=== PATIENT | female | born 1950 | race Two or more races ===

== ENCOUNTER 2019-09-09 07:59 | Inpatient (IN) | payer MEDICARE, OTHER ==
[2019-09-09] VITALS (54 sets, daily range): BP systolic 50–120; BP diastolic 2–91
[~2019-09-09] VITALS: Ht 172.7 cm; Wt 108.0 kg
[2019-09-09] MEDS ORDERED: AZITHROMYCIN 500MG/ 250ML 250 ML IV ONE (08:15)
[2019-09-09] MEDS ORDERED: cefTRIAXone 1GM/50ML D5W 50 ML IV ONE (08:15)
[2019-09-09] MEDS ORDERED: FUROSEMIDE 40 MG/4 ML VIAL IV ONE (08:30)
[2019-09-09 09:07] LABS: Basophils # (auto) 0.1 10 ^3/uL (0-0.2); Eosinophils # (auto) 0 10 ^3/uL (0-0.8); Eosinophils % (auto) 0.4 % (0.0-7.0); Hemoglobin 12.2 g/dL (12.2-16.2); Monocytes # (auto) 0.9 10 ^3/uL (0-1.3); Nucleated Red Blood Cells % 0.1 %
[2019-09-09 09:09] LABS: Basophils % (auto) 0.8 % (0.0-2.0); Hematocrit 37.5 % (36.0-46.0); Lymphocytes # (auto) 2.4 10 ^3/uL (0.4-5.4); Lymphocytes % (auto) 21.9 % (10.0-50.0); Mean Corpuscular Hemoglobin 27.1 pg (28.0-32.0); Mean Corpuscular Hgb Conc. 32.6 g/dL (32.0-36.0); Mean Corpuscular Volume 83.1 fL (80.0-100.0); Monocytes % (auto) 7.9 % (0.0-12.0); Neutrophils # (auto) 7.4 10 ^3/uL (1.6-8.6); Platelet Count (auto) 618 10^3/uL (140-450); Red Blood Cells 4.51 10^6/uL (4.0-5.20); Red Cell Distribution Width 15.3 % (11.8-14.3); White Blood Cell 10.7 10^3/uL (4.4-10.8)
[2019-09-09 09:20] LABS: Calcium 8.4 mg/dL (8.5-10.1); Potassium 3.9 mmol/L (3.5-5.1)
[2019-09-09] MEDS ORDERED: FUROSEMIDE 20 MG/2 ML VIAL ONE (09:22)
[2019-09-09 09:23] LABS: Lactic Acid w/Reflex 3.5 mmol/L (0.4-2.0)
[2019-09-09 09:25] LABS: INR 1.06 (0.9-1.15); Partial Thromboplastin Time 26.1 sec (23.64-32.05)
[2019-09-09 09:26] LABS: BUN/Creatinine Ratio 36.7; Bilirubin, Total 0.4 mg/dL (0.2-1.0)
[2019-09-09 09:29] LABS: Urine Bacteria NONE SEEN /hpf (None Seen); Urine Blood Negative /uL (Negative); Urine Specific Gravity 1.014 (1.001-1.035); Urine WBC 1 /hpf (0 - 5)
[2019-09-09] MEDS ORDERED: IOHEXOL 350 MG/ML 100ML IJ ONE ×2 (09:42→11:03)
[2019-09-09] MEDS ORDERED: ENOXAPARIN SOD 100 MG/1 ML SYRINGE SC ONE (11:00)
[2019-09-09] MEDS ORDERED: MORPHINE SULF INJ 2 MG/ML SYRINGE 1ML IV PRN ×2 (11:15)
[2019-09-09] MEDS ORDERED: LACTULOSE 20Gm/30ML SOLN PO PRN ×2 (11:15)
[2019-09-09] MEDS ORDERED: DEXTROSE (50%) 50ML SYRG IV PRN (11:15)
[2019-09-09] MEDS ORDERED: TEMAZEPAM 15 MG CAP PO PRN (11:15)
[2019-09-09] MEDS ORDERED: ALBUTEROL SULF 2.5 MG/0.5ML(0.5%) NEB SOLN NEB PRN (11:15)
[2019-09-09] MEDS ORDERED: NITROGLYCERIN 0.4 MG SL TAB SL PRN (11:15)
[2019-09-09] MEDS ORDERED: traMADol HCL 50 MG TAB PO PRN (11:15)
[2019-09-09] MEDS ORDERED: PROMETHAZINE HCL 25 MG/ML 1ML IV PRN (11:15)
[2019-09-09] MEDS ORDERED: CLINDAMYCIN 600MG IV 50 ML IV ONE (11:15)
[2019-09-09] MEDS: ACCU-CHEK COMFORT CURVE STRIP VI SCH ×3 (11:30→22:10)
[2019-09-09] MEDS: InsuLIN REG 1unit/0.01ml Soln (100units/ml) SC SCH ×3 (11:30→22:12)
[2019-09-09] MEDS ORDERED: SUCCINYLCHOLINE CHLORIDE 20 MG/ML 10ML VIAL IV ONE ×2 (11:39→15:15)
[2019-09-09] MEDS ORDERED: MIDAZOLAM DRIP 50 mg/50mL 50 ML IV ONE ×2 (11:39→13:26)
[2019-09-09] MEDS ORDERED: ETOMIDATE (2MG/ML) 20ML VIAL IV ONE ×2 (11:39→15:15)
[2019-09-09] MEDS: MIDAZOLAM DRIP 50 mg/50mL 50 ML IV SCH ×2 (11:54→20:38)
[2019-09-09 12:02] LABS: Alcohol, Urine < 3.0 mg/dL (0-5); Amphetamine Screen, Urine POSITIVE (NEGATIVE); Barbiturate Scree,Urine NEGATIVE (NEGATIVE); Benzodiazephine Screen, Urine NEGATIVE (NEGATIVE); Cannabinoid Screen, Urine NEGATIVE (NEGATIVE); Cocaine Screen, Urine NEGATIVE (NEGATIVE); Opiate Scree,Urine NEGATIVE (NEGATIVE); Phencyclidine Screen, Urine NEGATIVE (NEGATIVE)
[2019-09-09] MEDS ORDERED: NOREPINEPHRINE 8 MG/250ML KIT 250 ML IV ONE (12:26)
[2019-09-09] MEDS: NOREPINEPHRINE 8 MG/250ML KIT 250 ML IV SCH ×2 (12:30→21:52)
[2019-09-09] MEDS: fentaNYL Drip 2500mCg/250mlNS 250 ML IV SCH ×2 (12:30→23:41)
[2019-09-09] MEDS: PHENYLEPHRINE IV 250 ML IV SCH ×2 (13:20→20:39)
[2019-09-09] MEDS: SODIUM CHLOR 0.9% PF (SALINE LOCK) 10ML VIAL/SYR IV SCH ×2 (14:00→21:41)
[2019-09-09] MEDS: CARVEDILOL 3.125 MG TAB PO SCH (21:40)
[2019-09-09] MEDS: CLINDAMYCIN 600MG IV 50 ML IV SCH (21:43)
[2019-09-09] MEDS: ENOXAPARIN SOD 80 MG/0.8ML SYRINGE SC SCH (21:58)
[2019-09-09] MEDS: ALBUTEROL SULF 2.5 MG/0.5ML(0.5%) NEB SOLN NEB SCH ×2 (22:00→22:29)
[2019-09-09] MEDS ORDERED: VENL150T26 PO (23:14)
[2019-09-09] MEDS ORDERED: BENA20TA14 PO (23:14)
[2019-09-09] MEDS ORDERED: METF-370 PO (23:14)
[2019-09-09] MEDS ORDERED: SIMV-8 PO (23:14)
[2019-09-09] MEDS ORDERED: THYR30TA PO (23:14)
[2019-09-10] VITALS (101 sets, daily range): BP systolic 67–240; BP diastolic 33–170
[2019-09-10] MEDS: MIDAZOLAM DRIP 50 mg/50mL 50 ML IV SCH ×3 (00:14→20:34)
[2019-09-10] MEDS ORDERED: MULTCHW3 OR (01:31)
[2019-09-10] MEDS ORDERED: GABA100C9 PO (01:31)
[2019-09-10] MEDS ORDERED: FURO1TAB33 PO (01:31)
[2019-09-10] MEDS ORDERED: ASPI-404 PO (01:31)
[2019-09-10] MEDS: ACETAMINOPHEN 500 MG TAB PO PRN ×3 (01:50→17:00)
[2019-09-10] MEDS: NOREPINEPHRINE 8 MG/250ML KIT 250 ML IV SCH ×2 (02:41→06:47)
[2019-09-10] MEDS ORDERED: SODIUM CHLORIDE 0.9% 1,000 ML IV ONE (03:30)
[2019-09-10] MEDS: PHENYLEPHRINE IV 250 ML IV SCH ×3 (04:18→15:23)
[2019-09-10] MEDS: SODIUM CHLOR 0.9% PF (SALINE LOCK) 10ML VIAL/SYR IV SCH ×3 (05:38→21:59)
[2019-09-10] MEDS: CLINDAMYCIN 600MG IV 50 ML IV SCH ×3 (05:38→21:57)
[2019-09-10] MEDS: ACCU-CHEK COMFORT CURVE STRIP VI SCH ×4 (06:02→22:00)
[2019-09-10] MEDS: InsuLIN REG 1unit/0.01ml Soln (100units/ml) SC SCH ×4 (06:02→22:15)
[2019-09-10] MEDS: ALBUTEROL SULF 2.5 MG/0.5ML(0.5%) NEB SOLN NEB SCH ×3 (06:30→22:32)
[2019-09-10 06:42] LABS: Basophils # (auto) 0.1 10 ^3/uL (0-0.2); Eosinophils % (auto) 0.4 % (0.0-7.0); Lymphocytes # (auto) 3.6 10 ^3/uL (0.4-5.4); Monocytes # (auto) 1.5 10 ^3/uL (0-1.3); Neutrophils # (auto) 8.2 10 ^3/uL (1.6-8.6); Nucleated Red Blood Cells % 0.1 %
[2019-09-10 06:44] LABS: Basophils % (auto) 0.4 % (0.0-2.0); Eosinophils # (auto) 0 10 ^3/uL (0-0.8); Hematocrit 36.3 % (36.0-46.0); Hemoglobin 11.6 g/dL (12.2-16.2); Lymphocytes % (auto) 26.8 % (10.0-50.0); Mean Corpuscular Hemoglobin 26.9 pg (28.0-32.0); Monocytes % (auto) 11.2 % (0.0-12.0); Neutrophils % (auto) 61.2 % (37.0-80.0); Platelet Count (auto) 610 10^3/uL (140-450); Red Blood Cells 4.32 10^6/uL (4.0-5.20); White Blood Cell 13.3 10^3/uL (4.4-10.8)
[2019-09-10 06:57] LABS: Albumin 2.7 g/dL (3.4-5.0); Potassium 3.7 mmol/L (3.5-5.1)
[2019-09-10 07:02] LABS: BUN/Creatinine Ratio 36.4; Bilirubin, Total 0.7 mg/dL (0.2-1.0); Total Protein 6.3 g/dL (6.4-8.2)
[2019-09-10] MEDS ORDERED: SODIUM BICARBONATE 8.4 % INJ 50ML VIAL IV ONE ×2 (08:30→11:30)
[2019-09-10] MEDS: CARVEDILOL 3.125 MG TAB PO SCH ×2 (10:00→22:00)
[2019-09-10] MEDS ORDERED: levoFLOXacin 500MG 100 ML IV SCH (10:00)
[2019-09-10] MEDS ORDERED: PANTOPRAZOLE 40 MG TAB PO SCH (10:00)
[2019-09-10] MEDS ORDERED: POTASSIUM CHL 20 Meq TABLET PO SCH (10:00)
[2019-09-10] MEDS: ASPirin 81 mg TAB PO SCH (10:15)
[2019-09-10] MEDS: ENOXAPARIN SOD 80 MG/0.8ML SYRINGE SC SCH (10:15)
[2019-09-10] MEDS: fentaNYL Drip 2500mCg/250mlNS 250 ML IV SCH ×2 (11:59→23:28)
[2019-09-10] MEDS: PANTOPRAZOLE 40 MG/10 ML VIAL INJ IV SCH (12:10)
[2019-09-10] MEDS ORDERED: levoFLOXacin 250MG 50 ML IV ONE (13:45)
[2019-09-10] MEDS: FUROSEMIDE 100 MG/10ML VIAL IV SCH (14:06)
[2019-09-10] MEDS: POTASSIUM EFFERVESENT TAB 25 MEQ GT SCH (15:22)
[2019-09-10] MEDS: PHENYLEPHRINE INJ 40 MG in SODIUM CHL 0.9% 250 ML IV SCH ×2 (17:00→20:34)
[2019-09-10] MEDS: HYDROCORTISONE SOD SUCC 100 MG/2ML INJ VIAL IV SCH ×2 (18:35→23:38)
[2019-09-10] MEDS: NOREPINEPHRINE BITARTRATE 16 MG in SODIUM CHL 0.9% 250 ML IV SCH (18:41)
[2019-09-10] MEDS: ENOXAPARIN SOD 100 MG/1 ML SYRINGE SC SCH (22:00)
[2019-09-11] VITALS (106 sets, daily range): BP systolic 60–289; BP diastolic 37–272
[2019-09-11] MEDS ORDERED: PHENYLEPHRINE HCL 10 MG/ML VL ONE (01:19)
[2019-09-11] MEDS: NOREPINEPHRINE BITARTRATE 16 MG in SODIUM CHL 0.9% 250 ML IV SCH ×2 (01:36→20:39)
[2019-09-11] MEDS: PHENYLEPHRINE INJ 40 MG in SODIUM CHL 0.9% 250 ML IV SCH (01:37)
[2019-09-11 04:36] LABS: Basophils # (auto) 0.1 10 ^3/uL (0-0.2); Basophils % (auto) 0.5 % (0.0-2.0); Eosinophils # (auto) 0 10 ^3/uL (0-0.8); Eosinophils % (auto) 0.1 % (0.0-7.0); Hematocrit 36.8 % (36.0-46.0); Hemoglobin 11.9 g/dL (12.2-16.2); Lymphocytes # (auto) 1.5 10 ^3/uL (0.4-5.4); Lymphocytes % (auto) 11.2 % (10.0-50.0); Mean Corpuscular Hemoglobin 27.2 pg (28.0-32.0); Mean Corpuscular Hgb Conc. 32.2 g/dL (32.0-36.0); Mean Corpuscular Volume 84.6 fL (80.0-100.0); Monocytes # (auto) 0.8 10 ^3/uL (0-1.3); Monocytes % (auto) 6.2 % (0.0-12.0); Neutrophils # (auto) 10.7 10 ^3/uL (1.6-8.6); Platelet Count (auto) 575 10^3/uL (140-450); Red Blood Cells 4.36 10^6/uL (4.0-5.20); Red Cell Distribution Width 15.5 % (11.8-14.3)
[2019-09-11] MEDS: MIDAZOLAM DRIP 50 mg/50mL 50 ML IV SCH ×5 (04:40→22:45)
[2019-09-11 05:01] LABS: Albumin 2.5 g/dL (3.4-5.0); BUN/Creatinine Ratio 24.5; Bilirubin, Total 0.8 mg/dL (0.2-1.0); Calcium 8.2 mg/dL (8.5-10.1); Total Protein 6.5 g/dL (6.4-8.2)
[2019-09-11] MEDS: HYDROCORTISONE SOD SUCC 100 MG/2ML INJ VIAL IV SCH ×4 (05:50→23:47)
[2019-09-11] MEDS: SODIUM CHLOR 0.9% PF (SALINE LOCK) 10ML VIAL/SYR IV SCH ×3 (05:51→21:52)
[2019-09-11] MEDS: CLINDAMYCIN 600MG IV 50 ML IV SCH ×3 (05:51→21:51)
[2019-09-11] MEDS: ALBUTEROL SULF 2.5 MG/0.5ML(0.5%) NEB SOLN NEB SCH ×3 (07:10→22:23)
[2019-09-11] MEDS: InsuLIN REG 1unit/0.01ml Soln (100units/ml) SC SCH ×4 (07:17→22:05)
[2019-09-11] MEDS: ACCU-CHEK COMFORT CURVE STRIP VI SCH ×4 (07:17→22:02)
[2019-09-11] MEDS: POTASSIUM EFFERVESENT TAB 25 MEQ GT SCH (10:00)
[2019-09-11] MEDS ORDERED: PANTOPRAZOLE 40 MG/10 ML VIAL INJ IV SCH (10:00)
[2019-09-11] MEDS: ASPirin 81 mg TAB PO SCH (10:00)
[2019-09-11] MEDS: CARVEDILOL 3.125 MG TAB PO SCH ×2 (10:00→21:52)
[2019-09-11] MEDS: levoFLOXacin 750MG 150 ML IV SCH (10:01)
[2019-09-11] MEDS: ENOXAPARIN SOD 100 MG/1 ML SYRINGE SC SCH ×2 (10:01→22:02)
[2019-09-11] MEDS: PANTOPRAZOLE 40 MG/10 ML VIAL INJ IV SCH (10:02)
[2019-09-11] MEDS: FUROSEMIDE 100 MG/10ML VIAL IV SCH (10:02)
[2019-09-11] MEDS: fentaNYL Drip 2500mCg/250mlNS 250 ML IV SCH ×2 (11:10→22:57)
[2019-09-11] MEDS ORDERED: CYCL1TAB18 PO (15:45)
[2019-09-11] MEDS ORDERED: ESTR1TAB3 PO (15:45)
[2019-09-11] MEDS ORDERED: POTA10TA51 PO (15:45)
[2019-09-11] MEDS: VASOPRESSIN 50 UNITS in D5W 5% 247.5 ML IV SCH (18:48)
[2019-09-12] VITALS (101 sets, daily range): BP systolic 105–178; BP diastolic 51–150
[2019-09-12] MEDS: PHENYLEPHRINE INJ 40 MG in SODIUM CHL 0.9% 250 ML IV SCH ×2 (01:35→19:00)
[2019-09-12] MEDS: MIDAZOLAM DRIP 50 mg/50mL 50 ML IV SCH ×6 (02:44→22:12)
[2019-09-12] MEDS: CLINDAMYCIN 600MG IV 50 ML IV SCH ×3 (05:40→21:00)
[2019-09-12] MEDS: HYDROCORTISONE SOD SUCC 100 MG/2ML INJ VIAL IV SCH ×4 (05:40→23:35)
[2019-09-12] MEDS: SODIUM CHLOR 0.9% PF (SALINE LOCK) 10ML VIAL/SYR IV SCH ×3 (05:41→21:01)
[2019-09-12] MEDS: ALBUTEROL SULF 2.5 MG/0.5ML(0.5%) NEB SOLN NEB SCH ×3 (06:07→21:33)
[2019-09-12] MEDS: ACCU-CHEK COMFORT CURVE STRIP VI SCH ×4 (06:16→23:31)
[2019-09-12] MEDS: InsuLIN REG 1unit/0.01ml Soln (100units/ml) SC SCH ×4 (06:18→23:33)
[2019-09-12] MEDS: NOREPINEPHRINE BITARTRATE 16 MG in SODIUM CHL 0.9% 250 ML IV SCH (06:35)
[2019-09-12] MEDS ORDERED: DEXTROSE (50%) 50ML SYRG IV PRN (08:00)
[2019-09-12 08:24] LABS: Basophils # (auto) 0.1 10 ^3/uL (0-0.2); Eosinophils # (auto) 0 10 ^3/uL (0-0.8); Lymphocytes # (auto) 1.8 10 ^3/uL (0.4-5.4); Lymphocytes % (auto) 14.9 % (10.0-50.0); Monocytes # (auto) 0.9 10 ^3/uL (0-1.3); Red Cell Distribution Width 15.9 % (11.8-14.3)
[2019-09-12 08:26] LABS: Basophils % (auto) 0.6 % (0.0-2.0); Eosinophils % (auto) 0.1 % (0.0-7.0); Hematocrit 38.4 % (36.0-46.0); Hemoglobin 12.2 g/dL (12.2-16.2); Mean Corpuscular Hemoglobin 27.1 pg (28.0-32.0); Mean Corpuscular Hgb Conc. 31.7 g/dL (32.0-36.0); Mean Corpuscular Volume 85.4 fL (80.0-100.0); Monocytes % (auto) 7.7 % (0.0-12.0); Neutrophils # (auto) 9.3 10 ^3/uL (1.6-8.6); Neutrophils % (auto) 76.7 % (37.0-80.0); Platelet Count (auto) 699 10^3/uL (140-450); White Blood Cell 12.1 10^3/uL (4.4-10.8)
[2019-09-12 09:39] LABS: Albumin 2.4 g/dL (3.4-5.0); Calcium 8.7 mg/dL (8.5-10.1)
[2019-09-12 09:43] LABS: Bilirubin, Total 0.5 mg/dL (0.2-1.0); Total Protein 6.7 g/dL (6.4-8.2)
[2019-09-12] MEDS: CARVEDILOL 3.125 MG TAB PO SCH ×2 (10:00→21:02)
[2019-09-12] MEDS: POTASSIUM EFFERVESENT TAB 25 MEQ GT SCH (10:09)
[2019-09-12] MEDS: FUROSEMIDE 100 MG/10ML VIAL IV SCH (10:09)
[2019-09-12] MEDS: ENOXAPARIN SOD 100 MG/1 ML SYRINGE SC SCH ×2 (10:09→21:00)
[2019-09-12] MEDS: levoFLOXacin 750MG 150 ML IV SCH (10:09)
[2019-09-12] MEDS: ASPirin 81 mg TAB PO SCH (10:09)
[2019-09-12] MEDS: PANTOPRAZOLE 40 MG/10 ML VIAL INJ IV SCH (10:09)
[2019-09-12] MEDS: fentaNYL Drip 2500mCg/250mlNS 250 ML IV SCH ×2 (11:56→20:45)
[2019-09-12] MEDS: VASOPRESSIN 50 UNITS in D5W 5% 247.5 ML IV SCH (16:45)
[2019-09-13] VITALS (86 sets, daily range): BP systolic 85–145; BP diastolic 34–73
[2019-09-13] MEDS: MIDAZOLAM DRIP 50 mg/50mL 50 ML IV SCH ×5 (01:28→18:08)
[2019-09-13 03:56] LABS: Basophils % (auto) 0.4 % (0.0-2.0); Eosinophils # (auto) 0 10 ^3/uL (0-0.8); Monocytes # (auto) 0.9 10 ^3/uL (0-1.3)
[2019-09-13 03:57] LABS: Basophils # (auto) 0.1 10 ^3/uL (0-0.2); Hematocrit 36.3 % (36.0-46.0); Lymphocytes # (auto) 1.8 10 ^3/uL (0.4-5.4); Lymphocytes % (auto) 14.9 % (10.0-50.0); Mean Corpuscular Hemoglobin 27.7 pg (28.0-32.0); Mean Corpuscular Hgb Conc. 32.9 g/dL (32.0-36.0); Mean Corpuscular Volume 84.1 fL (80.0-100.0); Neutrophils # (auto) 9.1 10 ^3/uL (1.6-8.6); Neutrophils % (auto) 76.7 % (37.0-80.0); Platelet Count (auto) 706 10^3/uL (140-450); Red Blood Cells 4.32 10^6/uL (4.0-5.20); Red Cell Distribution Width 15.9 % (11.8-14.3); White Blood Cell 11.8 10^3/uL (4.4-10.8)
[2019-09-13 04:10] LABS: Albumin 2.5 g/dL (3.4-5.0); Calcium 8.5 mg/dL (8.5-10.1); Potassium 3.7 mmol/L (3.5-5.1)
[2019-09-13 04:13] LABS: BUN/Creatinine Ratio 65.4; Bilirubin, Total 0.4 mg/dL (0.2-1.0); Total Protein 6.4 g/dL (6.4-8.2)
[2019-09-13] MEDS: ACCU-CHEK COMFORT CURVE STRIP VI SCH ×3 (05:31→17:37)
[2019-09-13] MEDS: InsuLIN REG 1unit/0.01ml Soln (100units/ml) SC SCH ×3 (05:32→17:53)
[2019-09-13] MEDS: CLINDAMYCIN 600MG IV 50 ML IV SCH ×3 (05:41→22:27)
[2019-09-13] MEDS: HYDROCORTISONE SOD SUCC 100 MG/2ML INJ VIAL IV SCH ×3 (05:41→17:41)
[2019-09-13] MEDS: SODIUM CHLOR 0.9% PF (SALINE LOCK) 10ML VIAL/SYR IV SCH ×3 (05:41→22:27)
[2019-09-13] MEDS: ALBUTEROL SULF 2.5 MG/0.5ML(0.5%) NEB SOLN NEB SCH ×3 (05:52→22:09)
[2019-09-13] MEDS: CARVEDILOL 3.125 MG TAB PO SCH ×2 (09:26→22:00)
[2019-09-13] MEDS: ENOXAPARIN SOD 100 MG/1 ML SYRINGE SC SCH ×2 (09:26→22:27)
[2019-09-13] MEDS: POTASSIUM EFFERVESENT TAB 25 MEQ GT SCH (09:26)
[2019-09-13] MEDS: FUROSEMIDE 100 MG/10ML VIAL IV SCH (09:26)
[2019-09-13] MEDS: levoFLOXacin 750MG 150 ML IV SCH (09:26)
[2019-09-13] MEDS: ASPirin 81 mg TAB PO SCH (09:26)
[2019-09-13] MEDS: PANTOPRAZOLE 40 MG/10 ML VIAL INJ IV SCH (09:27)
[2019-09-13] MEDS: PHENYLEPHRINE INJ 40 MG in SODIUM CHL 0.9% 250 ML IV SCH (09:27)
[2019-09-13] MEDS: fentaNYL Drip 2500mCg/250mlNS 250 ML IV SCH (09:54)
[2019-09-13] MEDS: VASOPRESSIN 50 UNITS in D5W 5% 247.5 ML IV SCH (15:55)
[2019-09-13] MEDS: NOREPINEPHRINE BITARTRATE 16 MG in SODIUM CHL 0.9% 250 ML IV SCH (16:37)
[2019-09-14] VITALS (60 sets, daily range): BP systolic 100–159; BP diastolic 36–71
[2019-09-14] MEDS: PHENYLEPHRINE INJ 40 MG in SODIUM CHL 0.9% 250 ML IV SCH (03:57)
[2019-09-14] MEDS: HYDROCORTISONE SOD SUCC 100 MG/2ML INJ VIAL IV SCH ×5 (05:41→23:46)
[2019-09-14] MEDS: CLINDAMYCIN 600MG IV 50 ML IV SCH (05:41)
[2019-09-14] MEDS: SODIUM CHLOR 0.9% PF (SALINE LOCK) 10ML VIAL/SYR IV SCH ×3 (05:41→22:00)
[2019-09-14] MEDS: InsuLIN REG 1unit/0.01ml Soln (100units/ml) SC SCH ×5 (05:42→23:47)
[2019-09-14] MEDS: ACCU-CHEK COMFORT CURVE STRIP VI SCH ×5 (05:42→23:46)
[2019-09-14] MEDS: ALBUTEROL SULF 2.5 MG/0.5ML(0.5%) NEB SOLN NEB SCH ×3 (06:04→22:11)
[2019-09-14 06:24] LABS: Eosinophils # (auto) 0 10 ^3/uL (0-0.8); Hemoglobin 11.3 g/dL (12.2-16.2); Nucleated Red Blood Cells % 0.1 %; White Blood Cell 12.9 10^3/uL (4.4-10.8)
[2019-09-14 06:26] LABS: Basophils # (auto) 0.1 10 ^3/uL (0-0.2); Basophils % (auto) 0.4 % (0.0-2.0); Eosinophils % (auto) 0.2 % (0.0-7.0); Hematocrit 35.4 % (36.0-46.0); Lymphocytes # (auto) 4.5 10 ^3/uL (0.4-5.4); Mean Corpuscular Hemoglobin 26.9 pg (28.0-32.0); Mean Corpuscular Hgb Conc. 31.9 g/dL (32.0-36.0); Mean Corpuscular Volume 84.1 fL (80.0-100.0); Monocytes % (auto) 8.1 % (0.0-12.0); Neutrophils # (auto) 7.3 10 ^3/uL (1.6-8.6); Neutrophils % (auto) 56.3 % (37.0-80.0); Platelet Count (auto) 697 10^3/uL (140-450); Red Blood Cells 4.21 10^6/uL (4.0-5.20); Red Cell Distribution Width 15.5 % (11.8-14.3)
[2019-09-14 06:31] LABS: Potassium 3.2 mmol/L (3.5-5.1)
[2019-09-14 06:44] LABS: Albumin 2.5 g/dL (3.4-5.0); BUN/Creatinine Ratio 72.5; Bilirubin, Total 0.4 mg/dL (0.2-1.0); Calcium 8.6 mg/dL (8.5-10.1)
[2019-09-14] MEDS ORDERED: POTASSIUM CHL 20MEQ/100ML 100 ML IV ONE ×3 (07:30→08:45)
[2019-09-14] MEDS ORDERED: DIGOXIN (250MCG/ML) 2 ML AMPULE IV ONE ×2 (08:00→08:30)
[2019-09-14] MEDS: fentaNYL Drip 2500mCg/250mlNS 250 ML IV SCH ×2 (08:29→10:04)
[2019-09-14] MEDS: PANTOPRAZOLE 40 MG/10 ML VIAL INJ IV SCH (09:42)
[2019-09-14] MEDS: levoFLOXacin 750MG 150 ML IV SCH (09:43)
[2019-09-14] MEDS: ENOXAPARIN SOD 100 MG/1 ML SYRINGE SC SCH ×2 (09:43→22:00)
[2019-09-14] MEDS: POTASSIUM EFFERVESENT TAB 25 MEQ GT SCH (09:43)
[2019-09-14] MEDS: FUROSEMIDE 100 MG/10ML VIAL IV SCH (09:43)
[2019-09-14] MEDS: ASPirin 81 mg TAB PO SCH (09:43)
[2019-09-14] MEDS: CARVEDILOL 3.125 MG TAB PO SCH ×2 (09:43→22:00)
[2019-09-14] MEDS: MIDAZOLAM DRIP 50 mg/50mL 50 ML IV SCH (10:03)
[2019-09-14] MEDS ORDERED: NOREPINEPHRINE BITARTRATE 16 MG in D5W 5% 250 ML IV SCH (13:45)
[2019-09-14] MEDS: ceFAZolin 2 GM in D5W 5% 100 ML IV SCH ×2 (14:37→22:00)
[2019-09-14] MEDS: NOREPINEPHRINE BITARTRATE 16 MG in SODIUM CHL 0.9% 250 ML IV SCH ×2 (15:15→19:10)
[2019-09-14] MEDS: VASOPRESSIN 50 UNITS in D5W 5% 247.5 ML IV SCH (16:45)
[2019-09-14 23:34] LABS: BUN/Creatinine Ratio 62.5; Calcium 8.7 mg/dL (8.5-10.1)
[2019-09-15] VITALS (74 sets, daily range): BP systolic 86–132; BP diastolic 23–64
[2019-09-15] MEDS: SODIUM CHLOR 0.9% PF (SALINE LOCK) 10ML VIAL/SYR IV SCH ×3 (06:00→22:00)
[2019-09-15] MEDS: ceFAZolin 2 GM in D5W 5% 100 ML IV SCH ×3 (06:00→22:00)
[2019-09-15] MEDS: InsuLIN REG 1unit/0.01ml Soln (100units/ml) SC SCH ×3 (06:00→18:04)
[2019-09-15] MEDS: ACCU-CHEK COMFORT CURVE STRIP VI SCH ×3 (06:00→17:52)
[2019-09-15] MEDS: HYDROCORTISONE SOD SUCC 100 MG/2ML INJ VIAL IV SCH ×4 (06:00→22:00)
[2019-09-15] MEDS: ALBUTEROL SULF 2.5 MG/0.5ML(0.5%) NEB SOLN NEB SCH ×3 (07:07→21:52)
[2019-09-15 07:19] LABS: Eosinophils # (auto) 0 10 ^3/uL (0-0.8); Nucleated Red Blood Cells % 0.1 %
[2019-09-15 07:20] LABS: Basophils # (auto) 0 10 ^3/uL (0-0.2); Basophils % (auto) 0.3 % (0.0-2.0); Eosinophils % (auto) 0.1 % (0.0-7.0); Hematocrit 35.2 % (36.0-46.0); Hemoglobin 11.5 g/dL (12.2-16.2); Lymphocytes # (auto) 3.5 10 ^3/uL (0.4-5.4); Lymphocytes % (auto) 26.6 % (10.0-50.0); Mean Corpuscular Hemoglobin 27.5 pg (28.0-32.0); Mean Corpuscular Hgb Conc. 32.7 g/dL (32.0-36.0); Mean Corpuscular Volume 84.1 fL (80.0-100.0); Monocytes # (auto) 1.1 10 ^3/uL (0-1.3); Monocytes % (auto) 8.4 % (0.0-12.0); Neutrophils # (auto) 8.5 10 ^3/uL (1.6-8.6); Neutrophils % (auto) 64.6 % (37.0-80.0); Platelet Count (auto) 653 10^3/uL (140-450); Red Blood Cells 4.19 10^6/uL (4.0-5.20); Red Cell Distribution Width 15.8 % (11.8-14.3); White Blood Cell 13.2 10^3/uL (4.4-10.8)
[2019-09-15 07:38] LABS: Albumin 2.3 g/dL (3.4-5.0); Calcium 8.3 mg/dL (8.5-10.1); Potassium 3.8 mmol/L (3.5-5.1)
[2019-09-15 07:41] LABS: BUN/Creatinine Ratio 58.6; Bilirubin, Total 0.4 mg/dL (0.2-1.0)
[2019-09-15] MEDS ORDERED: LIDOCAINE 2%HCL (LOCAL ANESTH.) INJ 20ML MDV ONE (08:20)
[2019-09-15] MEDS ORDERED: IOHEXOL 350 MG/ML 100ML IJ ONE (08:20)
[2019-09-15] MEDS ORDERED: ANGIOMAX 250 MG VIAL IV ONE (08:34)
[2019-09-15] MEDS ORDERED: EPINEPHrine HCL 1 MG/10 ML SYRG ONE (08:34)
[2019-09-15] MEDS ORDERED: SODIUM CHL 0.9% 0 ML ONE (08:34)
[2019-09-15] MEDS: FUROSEMIDE 100 MG/10ML VIAL IV SCH ×2 (10:00→14:53)
[2019-09-15] MEDS: CARVEDILOL 3.125 MG TAB PO SCH ×2 (10:00→22:00)
[2019-09-15] MEDS: ENOXAPARIN SOD 100 MG/1 ML SYRINGE SC SCH ×2 (10:00→22:00)
[2019-09-15] MEDS: POTASSIUM EFFERVESENT TAB 25 MEQ GT SCH (10:00)
[2019-09-15] MEDS: ASPirin 81 mg TAB PO SCH (10:00)
[2019-09-15] MEDS: PANTOPRAZOLE 40 MG/10 ML VIAL INJ IV SCH (10:45)
[2019-09-15] MEDS: levoFLOXacin 750MG 150 ML IV SCH (10:45)
[2019-09-15] MEDS: MIDAZOLAM DRIP 50 mg/50mL 50 ML IV SCH (10:49)
[2019-09-15] MEDS: fentaNYL Drip 2500mCg/250mlNS 250 ML IV SCH (10:54)
[2019-09-15] MEDS ORDERED: DOBUTamine 1000MCG/ML 250 ML IV ONE (10:59)
[2019-09-15] MEDS: DOBUTamine 1000MCG/ML 250 ML IV SCH ×2 (11:22→18:05)
[2019-09-15] MEDS: NOREPINEPHRINE BITARTRATE 16 MG in D5W 5% 250 ML IV SCH (13:15)
[2019-09-15] MEDS: VASOPRESSIN 50 UNITS in D5W 5% 247.5 ML IV SCH (16:45)
[2019-09-16] VITALS (92 sets, daily range): BP systolic 110–172; BP diastolic 37–66
[2019-09-16] MEDS: DOBUTamine 1000MCG/ML 250 ML IV SCH ×3 (01:46→17:29)
[2019-09-16 04:07] LABS: Basophils # (auto) 0 10 ^3/uL (0-0.2); Basophils % (auto) 0.2 % (0.0-2.0); Eosinophils # (auto) 0 10 ^3/uL (0-0.8); Eosinophils % (auto) 0.1 % (0.0-7.0); Monocytes # (auto) 0.7 10 ^3/uL (0-1.3); Nucleated Red Blood Cells % 0.1 %; White Blood Cell 9.5 10^3/uL (4.4-10.8)
[2019-09-16 04:10] LABS: Hematocrit 32.7 % (36.0-46.0); Hemoglobin 10.8 g/dL (12.2-16.2); Lymphocytes % (auto) 21.1 % (10.0-50.0); Mean Corpuscular Hemoglobin 27.6 pg (28.0-32.0); Mean Corpuscular Hgb Conc. 33.1 g/dL (32.0-36.0); Mean Corpuscular Volume 83.4 fL (80.0-100.0); Monocytes % (auto) 7.8 % (0.0-12.0); Neutrophils # (auto) 6.7 10 ^3/uL (1.6-8.6); Neutrophils % (auto) 70.8 % (37.0-80.0); Platelet Count (auto) 531 10^3/uL (140-450); Red Blood Cells 3.93 10^6/uL (4.0-5.20)
[2019-09-16 04:24] LABS: Potassium 3.3 mmol/L (3.5-5.1)
[2019-09-16 04:31] LABS: Albumin 2.4 g/dL (3.4-5.0); Bilirubin, Total 0.4 mg/dL (0.2-1.0); Calcium 8.2 mg/dL (8.5-10.1); Total Protein 5.8 g/dL (6.4-8.2)
[2019-09-16] MEDS: ceFAZolin 2 GM in D5W 5% 100 ML IV SCH ×3 (06:00→21:44)
[2019-09-16] MEDS: SODIUM CHLOR 0.9% PF (SALINE LOCK) 10ML VIAL/SYR IV SCH ×3 (06:05→21:45)
[2019-09-16] MEDS: HYDROCORTISONE SOD SUCC 100 MG/2ML INJ VIAL IV SCH ×3 (06:05→21:45)
[2019-09-16] MEDS: InsuLIN REG 1unit/0.01ml Soln (100units/ml) SC SCH ×5 (06:29→23:22)
[2019-09-16] MEDS: ACCU-CHEK COMFORT CURVE STRIP VI SCH ×5 (06:29→23:20)
[2019-09-16] MEDS: ALBUTEROL SULF 2.5 MG/0.5ML(0.5%) NEB SOLN NEB SCH ×3 (06:45→22:29)
[2019-09-16] MEDS: ASPirin 81 mg TAB PO SCH (10:00)
[2019-09-16] MEDS: POTASSIUM EFFERVESENT TAB 25 MEQ GT SCH (10:00)
[2019-09-16] MEDS: CARVEDILOL 3.125 MG TAB PO SCH ×2 (10:00→21:46)
[2019-09-16] MEDS ORDERED: AMIODARONE 450mg/250ml AE 250 ML IV SCH (10:12)
[2019-09-16] MEDS: DIGOXIN (250MCG/ML) 2 ML AMPULE IV SCH (10:21)
[2019-09-16] MEDS: METOCLOPRAMIDE HCL 5MG/ml INJ 2ml VIAL IV SCH ×3 (10:21→21:44)
[2019-09-16] MEDS: PANTOPRAZOLE 40 MG/10 ML VIAL INJ IV SCH (10:21)
[2019-09-16] MEDS: FUROSEMIDE 100 MG/10ML VIAL IV SCH (10:21)
[2019-09-16] MEDS: levoFLOXacin 750MG 150 ML IV SCH (10:22)
[2019-09-16] MEDS: POTASSIUM CHL 20MEQ/100ML 100 ML IV SCH ×3 (10:22→12:47)
[2019-09-16] MEDS: ENOXAPARIN SOD 100 MG/1 ML SYRINGE SC SCH ×2 (10:23→21:46)
[2019-09-16] MEDS: DexMEDEtomidine 400 MCG in D5W 5% 96 ML IV SCH (10:32)
[2019-09-16] MEDS: fentaNYL Drip 2500mCg/250mlNS 250 ML IV SCH (12:21)
[2019-09-16] MEDS: NOREPINEPHRINE BITARTRATE 16 MG in D5W 5% 250 ML IV SCH (13:15)
[2019-09-16] MEDS: MIDAZOLAM DRIP 50 mg/50mL 50 ML IV SCH (15:06)
[2019-09-16] MEDS: VASOPRESSIN 50 UNITS in D5W 5% 247.5 ML IV SCH (16:45)
[2019-09-16] MEDS: AMIODARONE 450mg/250ml AE 250 ML IV SCH (17:29)
[2019-09-17] VITALS (42 sets, daily range): BP systolic 110–155; BP diastolic 34–59
[2019-09-17 04:13] LABS: Basophils # (auto) 0 10 ^3/uL (0-0.2); Eosinophils # (auto) 0 10 ^3/uL (0-0.8); Lymphocytes # (auto) 1.5 10 ^3/uL (0.4-5.4); Red Blood Cells 4.05 10^6/uL (4.0-5.20)
[2019-09-17 04:15] LABS: Hematocrit 33.9 % (36.0-46.0); Lymphocytes % (auto) 12.7 % (10.0-50.0); Mean Corpuscular Hemoglobin 27.1 pg (28.0-32.0); Mean Corpuscular Hgb Conc. 32.3 g/dL (32.0-36.0); Mean Corpuscular Volume 83.8 fL (80.0-100.0); Monocytes # (auto) 0.6 10 ^3/uL (0-1.3); Monocytes % (auto) 5.6 % (0.0-12.0); Neutrophils # (auto) 9.4 10 ^3/uL (1.6-8.6); Neutrophils % (auto) 81.7 % (37.0-80.0); Platelet Count (auto) 525 10^3/uL (140-450); Red Cell Distribution Width 15.9 % (11.8-14.3); White Blood Cell 11.5 10^3/uL (4.4-10.8)
[2019-09-17 04:33] LABS: Albumin 2.3 g/dL (3.4-5.0); Calcium 8.2 mg/dL (8.5-10.1); Potassium 3.7 mmol/L (3.5-5.1)
[2019-09-17 04:34] LABS: BUN/Creatinine Ratio 51.1
[2019-09-17 04:37] LABS: Bilirubin, Total 0.5 mg/dL (0.2-1.0)
[2019-09-17] MEDS: DexMEDEtomidine 400 MCG in D5W 5% 96 ML IV SCH (05:33)
[2019-09-17] MEDS: METOCLOPRAMIDE HCL 5MG/ml INJ 2ml VIAL IV SCH ×3 (06:18→22:59)
[2019-09-17] MEDS: SODIUM CHLOR 0.9% PF (SALINE LOCK) 10ML VIAL/SYR IV SCH ×3 (06:19→23:00)
[2019-09-17] MEDS: ACCU-CHEK COMFORT CURVE STRIP VI SCH ×3 (06:19→18:00)
[2019-09-17] MEDS: ceFAZolin 2 GM in D5W 5% 100 ML IV SCH ×3 (06:19→22:59)
[2019-09-17] MEDS: InsuLIN REG 1unit/0.01ml Soln (100units/ml) SC SCH ×3 (06:28→19:45)
[2019-09-17] MEDS: DOBUTamine 1000MCG/ML 250 ML IV SCH ×4 (06:34→19:37)
[2019-09-17] MEDS: ALBUTEROL SULF 2.5 MG/0.5ML(0.5%) NEB SOLN NEB SCH ×3 (06:44→22:31)
[2019-09-17] MEDS: AMIODARONE 450mg/250ml AE 250 ML IV SCH (08:45)
[2019-09-17] MEDS: ASPirin 81 mg TAB PO SCH (10:00)
[2019-09-17] MEDS: CARVEDILOL 3.125 MG TAB PO SCH ×2 (10:00→22:00)
[2019-09-17] MEDS: POTASSIUM EFFERVESENT TAB 25 MEQ GT SCH (10:00)
[2019-09-17] MEDS: levoFLOXacin 750MG 150 ML IV SCH (10:31)
[2019-09-17] MEDS: PANTOPRAZOLE 40 MG/10 ML VIAL INJ IV SCH (10:31)
[2019-09-17] MEDS: ENOXAPARIN SOD 100 MG/1 ML SYRINGE SC SCH (10:32)
[2019-09-17] MEDS: HYDROCORTISONE SOD SUCC 100 MG/2ML INJ VIAL IV SCH ×2 (10:32→22:59)
[2019-09-17] MEDS: FUROSEMIDE 100 MG/10ML VIAL IV SCH (10:33)
[2019-09-17] MEDS: DIGOXIN (250MCG/ML) 2 ML AMPULE IV SCH (10:34)
[2019-09-17] MEDS: fentaNYL Drip 2500mCg/250mlNS 250 ML IV SCH (12:21)
[2019-09-17] MEDS: NOREPINEPHRINE BITARTRATE 16 MG in D5W 5% 250 ML IV SCH (13:15)
[2019-09-17] MEDS ORDERED: POTASSIUM CHL 20MEQ/100ML 100 ML IV ONE (16:00)
[2019-09-18] VITALS: BP 131/44
[2019-09-18] MEDS: AMIODARONE 450mg/250ml AE 250 ML IV SCH ×2 (01:13→13:26)
[2019-09-18] MEDS: DOBUTamine 1000MCG/ML 250 ML IV SCH ×5 (02:02→23:20)
[2019-09-18 04:00] VITALS: BP 133/48
[2019-09-18] MEDS: ceFAZolin 2 GM in D5W 5% 100 ML IV SCH ×3 (05:00→23:15)
[2019-09-18] MEDS: ALBUTEROL SULF 2.5 MG/0.5ML(0.5%) NEB SOLN NEB SCH ×3 (06:06→22:33)
[2019-09-18] MEDS: InsuLIN REG 1unit/0.01ml Soln (100units/ml) SC SCH ×4 (06:16→17:47)
[2019-09-18] MEDS: ACCU-CHEK COMFORT CURVE STRIP VI SCH ×4 (06:16→17:34)
[2019-09-18] MEDS: SODIUM CHLOR 0.9% PF (SALINE LOCK) 10ML VIAL/SYR IV SCH ×3 (06:17→23:16)
[2019-09-18] MEDS: METOCLOPRAMIDE HCL 5MG/ml INJ 2ml VIAL IV SCH ×3 (06:18→23:15)
[2019-09-18 07:45] VITALS: BP 133/39
[2019-09-18 09:30] VITALS: BP 133/39
[2019-09-18] MEDS: POTASSIUM EFFERVESENT TAB 25 MEQ GT SCH (09:50)
[2019-09-18] MEDS: HYDROCORTISONE SOD SUCC 100 MG/2ML INJ VIAL IV SCH ×2 (09:50→23:15)
[2019-09-18] MEDS: ENOXAPARIN SOD 40 MG/0.4 ML SYRINGE SC SCH (09:50)
[2019-09-18] MEDS: PANTOPRAZOLE 40 MG/10 ML VIAL INJ IV SCH (09:50)
[2019-09-18] MEDS: levoFLOXacin 750MG 150 ML IV SCH (09:50)
[2019-09-18] MEDS: FUROSEMIDE 100 MG/10ML VIAL IV SCH (09:50)
[2019-09-18] MEDS: CARVEDILOL 3.125 MG TAB PO SCH ×2 (09:51→22:00)
[2019-09-18] MEDS: ASPirin 81 mg TAB PO SCH (09:51)
[2019-09-18] MEDS: DIGOXIN 0.125 MG TAB PO SCH (09:55)
[2019-09-18] MEDS ORDERED: AMIODARONE HCL 200 MG TAB PO SCH (10:00)
[2019-09-18 11:45] VITALS: BP 126/48
[2019-09-18] MEDS: NOREPINEPHRINE BITARTRATE 16 MG in D5W 5% 250 ML IV SCH (13:15)
[2019-09-18 20:00] VITALS: BP 151/60
[2019-09-19] VITALS: BP 158/55
[2019-09-19] MEDS: DOBUTamine 1000MCG/ML 250 ML IV SCH ×2 (00:11→07:05)
[2019-09-19 04:00] VITALS: BP 155/54
[2019-09-19] MEDS: AMIODARONE 450mg/250ml AE 250 ML IV SCH (04:02)
[2019-09-19] MEDS: ACCU-CHEK COMFORT CURVE STRIP VI SCH ×4 (05:53→17:38)
[2019-09-19] MEDS: InsuLIN REG 1unit/0.01ml Soln (100units/ml) SC SCH ×4 (05:53→17:55)
[2019-09-19] MEDS: SODIUM CHLOR 0.9% PF (SALINE LOCK) 10ML VIAL/SYR IV SCH ×3 (06:02→22:27)
[2019-09-19] MEDS: ALBUTEROL SULF 2.5 MG/0.5ML(0.5%) NEB SOLN NEB SCH ×3 (06:04→22:54)
[2019-09-19] MEDS: METOCLOPRAMIDE HCL 5MG/ml INJ 2ml VIAL IV SCH ×3 (06:17→22:27)
[2019-09-19] MEDS: ceFAZolin 2 GM in D5W 5% 100 ML IV SCH ×3 (06:25→21:00)
[2019-09-19 07:40] VITALS: BP 162/50
[2019-09-19] MEDS: DIGOXIN 0.125 MG TAB PO SCH ×2 (10:00→10:43)
[2019-09-19] MEDS: ASPirin 81 mg TAB PO SCH ×2 (10:00→10:43)
[2019-09-19] MEDS: CARVEDILOL 3.125 MG TAB PO SCH ×3 (10:00→22:28)
[2019-09-19] MEDS: POTASSIUM EFFERVESENT TAB 25 MEQ GT SCH (10:00)
[2019-09-19] MEDS: FUROSEMIDE 100 MG/10ML VIAL IV SCH (10:23)
[2019-09-19] MEDS: PANTOPRAZOLE 40 MG/10 ML VIAL INJ IV SCH (10:24)
[2019-09-19] MEDS: levoFLOXacin 750MG 150 ML IV SCH (10:24)
[2019-09-19] MEDS: HYDROCORTISONE SOD SUCC 100 MG/2ML INJ VIAL IV SCH (10:24)
[2019-09-19] MEDS: ENOXAPARIN SOD 40 MG/0.4 ML SYRINGE SC SCH (10:24)
[2019-09-19 11:45] VITALS: BP 145/57
[2019-09-19] MEDS: NOREPINEPHRINE BITARTRATE 16 MG in D5W 5% 250 ML IV SCH (13:15)
[2019-09-19 16:00] VITALS: BP 153/61
[2019-09-20] MEDS: ACCU-CHEK COMFORT CURVE STRIP VI SCH ×4 (00:11→17:28)
[2019-09-20] MEDS: InsuLIN REG 1unit/0.01ml Soln (100units/ml) SC SCH ×4 (00:22→17:27)
[2019-09-20 04:00] VITALS: BP 118/59
[2019-09-20] MEDS: ceFAZolin 2 GM in D5W 5% 100 ML IV SCH ×3 (04:30→21:09)
[2019-09-20] MEDS: SODIUM CHLOR 0.9% PF (SALINE LOCK) 10ML VIAL/SYR IV SCH ×3 (05:42→22:29)
[2019-09-20] MEDS: METOCLOPRAMIDE HCL 5MG/ml INJ 2ml VIAL IV SCH ×3 (05:42→22:00)
[2019-09-20] MEDS: ALBUTEROL SULF 2.5 MG/0.5ML(0.5%) NEB SOLN NEB SCH ×3 (06:12→22:51)
[2019-09-20 08:00] VITALS: BP 109/45
[2019-09-20] MEDS: POTASSIUM EFFERVESENT TAB 25 MEQ GT SCH (09:49)
[2019-09-20] MEDS: FUROSEMIDE 100 MG/10ML VIAL IV SCH (09:50)
[2019-09-20] MEDS: ASPirin 81 mg TAB PO SCH (09:51)
[2019-09-20] MEDS: CARVEDILOL 3.125 MG TAB PO SCH ×2 (09:51→22:29)
[2019-09-20] MEDS: DIGOXIN 0.125 MG TAB PO SCH (09:51)
[2019-09-20] MEDS: AMIODARONE HCL 200 MG TAB PO SCH (09:52)
[2019-09-20] MEDS: HYDROCORTISONE SOD SUCC 100 MG/2ML INJ VIAL IV SCH (09:53)
[2019-09-20] MEDS: ENOXAPARIN SOD 40 MG/0.4 ML SYRINGE SC SCH (09:53)
[2019-09-20] MEDS: PANTOPRAZOLE 40 MG/10 ML VIAL INJ IV SCH (09:53)
[2019-09-20] MEDS: levoFLOXacin 750MG 150 ML IV SCH (09:54)
[2019-09-20 11:49] VITALS: BP 106/47
[2019-09-20] MEDS: NOREPINEPHRINE BITARTRATE 16 MG in D5W 5% 250 ML IV SCH (13:15)
[2019-09-20 16:00] VITALS: BP 116/59
[2019-09-20 20:00] VITALS: BP 132/67
[2019-09-21] VITALS (8 sets, daily range): BP systolic 109–129; BP diastolic 51–78
[2019-09-21] MEDS: ACCU-CHEK COMFORT CURVE STRIP VI SCH ×5 (00:46→17:48)
[2019-09-21] MEDS: InsuLIN REG 1unit/0.01ml Soln (100units/ml) SC SCH ×5 (00:48→23:18)
[2019-09-21 04:16] LABS: Basophils # (auto) 0.1 10 ^3/uL (0-0.2); Basophils % (auto) 0.8 % (0.0-2.0); Eosinophils # (auto) 0.1 10 ^3/uL (0-0.8); Eosinophils % (auto) 0.6 % (0.0-7.0); Hematocrit 37.4 % (36.0-46.0); Hemoglobin 12.3 g/dL (12.2-16.2); Lymphocytes # (auto) 3.2 10 ^3/uL (0.4-5.4); Lymphocytes % (auto) 21.2 % (10.0-50.0); Mean Corpuscular Hemoglobin 27.3 pg (28.0-32.0); Mean Corpuscular Hgb Conc. 32.9 g/dL (32.0-36.0); Mean Corpuscular Volume 83.1 fL (80.0-100.0); Monocytes # (auto) 1.3 10 ^3/uL (0-1.3); Monocytes % (auto) 8.9 % (0.0-12.0); Neutrophils # (auto) 10.4 10 ^3/uL (1.6-8.6); Neutrophils % (auto) 68.5 % (37.0-80.0); Nucleated Red Blood Cells % 0.1 %; Platelet Count (auto) 570 10^3/uL (140-450); Red Cell Distribution Width 15.5 % (11.8-14.3); White Blood Cell 15.2 10^3/uL (4.4-10.8)
[2019-09-21 04:31] LABS: Calcium 7.9 mg/dL (8.5-10.1)
[2019-09-21 04:34] LABS: BUN/Creatinine Ratio 40.9
[2019-09-21 04:39] LABS: Potassium 2.8 mmol/L (3.5-5.1)
[2019-09-21] MEDS ORDERED: POTASSIUM CHL 20 Meq TABLET PO ONE (05:00)
[2019-09-21] MEDS: ceFAZolin 2 GM in D5W 5% 100 ML IV SCH ×3 (05:21→21:00)
[2019-09-21] MEDS: METOCLOPRAMIDE HCL 5MG/ml INJ 2ml VIAL IV SCH ×3 (06:00→21:36)
[2019-09-21] MEDS: SODIUM CHLOR 0.9% PF (SALINE LOCK) 10ML VIAL/SYR IV SCH ×3 (06:19→21:37)
[2019-09-21] MEDS: ALBUTEROL SULF 2.5 MG/0.5ML(0.5%) NEB SOLN NEB SCH ×3 (07:57→21:59)
[2019-09-21] MEDS: POTASSIUM EFFERVESENT TAB 25 MEQ GT SCH (09:48)
[2019-09-21] MEDS: ASPirin 81 mg TAB PO SCH (09:49)
[2019-09-21] MEDS: HYDROCORTISONE SOD SUCC 100 MG/2ML INJ VIAL IV SCH (09:49)
[2019-09-21] MEDS: PANTOPRAZOLE 40 MG/10 ML VIAL INJ IV SCH (09:49)
[2019-09-21] MEDS: levoFLOXacin 750MG 150 ML IV SCH (09:49)
[2019-09-21] MEDS: AMIODARONE HCL 200 MG TAB PO SCH (09:50)
[2019-09-21] MEDS: ENOXAPARIN SOD 40 MG/0.4 ML SYRINGE SC SCH (09:51)
[2019-09-21] MEDS: FUROSEMIDE 100 MG/10ML VIAL IV SCH (09:54)
[2019-09-21] MEDS: DIGOXIN 0.125 MG TAB PO SCH (09:58)
[2019-09-21] MEDS: CARVEDILOL 3.125 MG TAB PO SCH ×2 (09:58→21:37)
[2019-09-22 00:59] VITALS: BP 121/58
[2019-09-22] MEDS: ceFAZolin 2 GM in D5W 5% 100 ML IV SCH ×3 (05:08→21:08)
[2019-09-22] MEDS: METOCLOPRAMIDE HCL 5MG/ml INJ 2ml VIAL IV SCH ×3 (05:16→21:39)
[2019-09-22] MEDS: InsuLIN REG 1unit/0.01ml Soln (100units/ml) SC SCH ×3 (05:39→18:12)
[2019-09-22] MEDS: SODIUM CHLOR 0.9% PF (SALINE LOCK) 10ML VIAL/SYR IV SCH ×3 (05:39→21:39)
[2019-09-22] MEDS: ACCU-CHEK COMFORT CURVE STRIP VI SCH ×3 (05:40→18:12)
[2019-09-22 05:49] VITALS: BP 124/67
[2019-09-22] MEDS: ALBUTEROL SULF 2.5 MG/0.5ML(0.5%) NEB SOLN NEB SCH ×3 (07:40→21:50)
[2019-09-22 09:00] VITALS: BP 129/65
[2019-09-22] MEDS: CARVEDILOL 3.125 MG TAB PO SCH ×2 (10:00→21:39)
[2019-09-22] MEDS: DIGOXIN 0.125 MG TAB PO SCH (10:00)
[2019-09-22] MEDS: AMIODARONE HCL 200 MG TAB PO SCH (10:00)
[2019-09-22] MEDS: FUROSEMIDE 100 MG/10ML VIAL IV SCH (10:00)
[2019-09-22] MEDS: ASPirin 81 mg TAB PO SCH (11:34)
[2019-09-22] MEDS: PANTOPRAZOLE 40 MG/10 ML VIAL INJ IV SCH (11:34)
[2019-09-22] MEDS: HYDROCORTISONE SOD SUCC 100 MG/2ML INJ VIAL IV SCH (11:35)
[2019-09-22] MEDS: levoFLOXacin 750MG 150 ML IV SCH (11:35)
[2019-09-22] MEDS: POTASSIUM EFFERVESENT TAB 25 MEQ GT SCH (11:35)
[2019-09-22] MEDS: ENOXAPARIN SOD 40 MG/0.4 ML SYRINGE SC SCH (11:35)
[2019-09-22 13:00] VITALS: BP 97/51
[2019-09-22 17:00] VITALS: BP 100/52
[2019-09-22 22:00] VITALS: BP 92/46
[2019-09-23] MEDS: ACCU-CHEK COMFORT CURVE STRIP VI SCH ×3 (00:39→11:52)
[2019-09-23] MEDS: InsuLIN REG 1unit/0.01ml Soln (100units/ml) SC SCH ×3 (00:49→11:51)
[2019-09-23] MEDS: ceFAZolin 2 GM in D5W 5% 100 ML IV SCH ×2 (04:49→11:52)
[2019-09-23 05:15] VITALS: BP 102/54
[2019-09-23] MEDS: SODIUM CHLOR 0.9% PF (SALINE LOCK) 10ML VIAL/SYR IV SCH ×2 (05:57→11:52)
[2019-09-23] MEDS: METOCLOPRAMIDE HCL 5MG/ml INJ 2ml VIAL IV SCH ×2 (05:57→11:52)
[2019-09-23] MEDS: ALBUTEROL SULF 2.5 MG/0.5ML(0.5%) NEB SOLN NEB SCH ×2 (06:15→14:26)
[2019-09-23 08:22] LABS: Basophils # (auto) 0.1 10 ^3/uL (0-0.2); Eosinophils # (auto) 0.2 10 ^3/uL (0-0.8); Lymphocytes # (auto) 2.8 10 ^3/uL (0.4-5.4); Neutrophils # (auto) 7.2 10 ^3/uL (1.6-8.6); Nucleated Red Blood Cells % 0.1 %; White Blood Cell 11.3 10^3/uL (4.4-10.8)
[2019-09-23 08:24] LABS: Basophils % (auto) 0.9 % (0.0-2.0); Eosinophils % (auto) 1.5 % (0.0-7.0); Hematocrit 34.6 % (36.0-46.0); Hemoglobin 11.4 g/dL (12.2-16.2); Lymphocytes % (auto) 24.7 % (10.0-50.0); Mean Corpuscular Hemoglobin 27.7 pg (28.0-32.0); Monocytes % (auto) 9.2 % (0.0-12.0); Neutrophils % (auto) 63.7 % (37.0-80.0); Platelet Count (auto) 551 10^3/uL (140-450); Red Blood Cells 4.12 10^6/uL (4.0-5.20); Red Cell Distribution Width 16.1 % (11.8-14.3)
[2019-09-23 09:00] VITALS: BP 112/60
[2019-09-23] MEDS: POTASSIUM EFFERVESENT TAB 25 MEQ GT SCH (09:31)
[2019-09-23] MEDS: DIGOXIN 0.125 MG TAB PO SCH (09:32)
[2019-09-23] MEDS: ASPirin 81 mg TAB PO SCH (09:32)
[2019-09-23] MEDS: ENOXAPARIN SOD 40 MG/0.4 ML SYRINGE SC SCH (09:33)
[2019-09-23] MEDS: CARVEDILOL 3.125 MG TAB PO SCH (09:33)
[2019-09-23] MEDS: AMIODARONE HCL 200 MG TAB PO SCH (09:34)
[2019-09-23] MEDS: levoFLOXacin 750MG 150 ML IV SCH (10:00)
[2019-09-23] MEDS: FUROSEMIDE 100 MG/10ML VIAL IV SCH (10:00)
[2019-09-23] MEDS: PANTOPRAZOLE 40 MG/10 ML VIAL INJ IV SCH (10:00)
[2019-09-23] MEDS ORDERED: ALPRAZolam 0.5 MG TAB PO SCH (11:00)
[2019-09-23 12:50] VITALS: BP 112/60
[2019-09-23 13:00] VITALS: BP 100/60
== END 2019-09-23 13:00 | DRG 870 ==
LOC: EDBD 07:59 → ER 07:59 → OVERFLOW 08:00 → ICU WEST 12:20 → DOU IN ICU 09-17 19:27 → TELE-EAST 09-22 00:36
PROVIDERS: ADMIT Internal Medicine; ATTEND Family Medicine
PROC: 5A1955Z Respiratory Ventilation, Greater than 96 Consecutive Hours (ICD-10-PCS; 2019-09-09)
PROC: 0BH17EZ Insertion of Endotracheal Airway into Trachea, Via Natural or Artificial Opening (ICD-10-PCS; 2019-09-09)
PROC: 02HV33Z Insertion of Infusion Device into Superior Vena Cava, Percutaneous Approach (ICD-10-PCS; 2019-09-10)
PROC: 4A023N8 Measurement of Cardiac Sampling and Pressure, Bilateral, Percutaneous Approach (ICD-10-PCS; principal; 2019-09-15)
PROC: B211YZZ Fluoroscopy of Multiple Coronary Arteries using Other Contrast (ICD-10-PCS; 2019-09-15)
PROC: B215YZZ Fluoroscopy of Left Heart using Other Contrast (ICD-10-PCS; 2019-09-15)
PROC: 4A133B3 Monitoring of Arterial Pressure, Pulmonary, Percutaneous Approach (ICD-10-PCS; 2019-09-15)
DX: A41.1 Sepsis due to other specified staphylococcus (principal); J18.9 Pneumonia, unspecified organism; J96.01 Acute respiratory failure with hypoxia; R65.21 Severe sepsis with septic shock; I21.4 Non-ST elevation (NSTEMI) myocardial infarction; J96.02 Acute respiratory failure with hypercapnia; I50.21 Acute systolic (congestive) heart failure; L03.116 Cellulitis of left lower limb; D68.59 Other primary thrombophilia; I42.9 Cardiomyopathy, unspecified; E11.9 Type 2 diabetes mellitus without complications; E03.9 Hypothyroidism, unspecified; E78.5 Hyperlipidemia, unspecified; F15.10 Other stimulant abuse, uncomplicated; F17.210 Nicotine dependence, cigarettes, uncomplicated; E66.01 Morbid (severe) obesity due to excess calories; I11.0 Hypertensive heart disease with heart failure; E78.00 Pure hypercholesterolemia, unspecified; I48.91 Unspecified atrial fibrillation; Z90.49 Acquired absence of other specified parts of digestive tract; Z90.710 Acquired absence of both cervix and uterus; Z68.35 Body mass index [BMI] 35.0-35.9, adult
CPT/HCPCS: 31500; 36415; 36556; 36600; 51702; 71045; 71275; 80048; 80053; 80307; 81001; 82550; 82728; 82805; 82962; 83036; 83605; 83615; 83735; 83880; 84132; 84443; 84484; 85025; 85379; 85610; 85652; 85730; 86141; 87040; 87070; 87077; 87081; 87186; 87205; 87804; 87880; 92610; 93005; 93306; 93460; 93970; 94002; 94003; 94640; 96365; 96368; 97163; 99152; 99153; 99291; C1751; C9113; G0378; J0330; J0690; J0696; J1815; J1956; J2250; J3480; J3490; J7060